=== PATIENT | male | born 1980 | race Caucasian/White ===

== ENCOUNTER 2018-03-30 21:49 | Inpatient (IN) ==
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
[2018-03-30 23:02] LABS: Baso % (Auto) 0.4 % (0.0-2.0); Eos # (Auto) 0.1 th/mm3 (0.0-0.4); Eos % (Auto) 0.9 % (0.0-4.0); Hematocrit 43.1 % (39.0-51.0); Hemoglobin 15.1 gm/dL (13.0-17.0); Lymph # (Auto) 2.1 th/mm3 (1.0-4.8); Lymph % (Auto) 25.9 % (9.0-44.0); Mean Corpuscular Hemoglobin 34.7 pg (27.0-34.0); Mean Corpuscular Volume 99.1 fL (80.0-100.0); Mono # (Auto) 0.5 th/mm3 (0.0-0.9); Mono % (Auto) 5.6 % (0.0-8.0); Neut # (Auto) 5.4 th/mm3 (1.8-7.7); Neut % (Auto) 67.2 % (16.0-70.0); Platelet Count 243 th/mm3 (150-450); Red Blood Count 4.35 mil/mm3 (4.50-5.90); Red Cell Distribution Width 13.5 % (11.6-17.2)
[2018-03-30 23:17] LABS: Alanine Aminotransferase 73 U/L (12-78); Albumin 4.1 g/dL (3.4-5.0); Anion Gap 8 meq/L (5-15); Aspartate Aminotransferase 72 U/L (15-37); Blood Urea Nitrogen 10 mg/dL (7-18); Calcium 8.6 mg/dL (8.5-10.1); Carbon Dioxide 29.1 meq/L (21.0-32.0); Chloride 109 meq/L (98-107); Glomerular Filtration Rate Greater Than 89 mL/min (>89); Glucose,Random 98 mg/dL (74-106); Magnesium 2.2 mg/dL (1.5-2.5); Potassium 3.8 meq/L (3.5-5.1); Sodium 146 meq/L (136-145)
[2018-03-30 23:27] LABS: Alcohol 377 mg/dL (0-5); Alkaline Phosphatase 107 U/L (45-117); Thyroid Stimulating Hormone 0.304 uIU/mL (0.358-3.740); Total Protein 8.9 g/dL (6.4-8.2)
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
[2018-03-31] MEDS ORDERED: Haloperidol Inj 5 MG/ML Ampul IM PRN (13:12)
[2018-03-31] MEDS ORDERED: LORazepam 1 MG Tablet PO PRN (13:12)
[2018-03-31 13:25] LABS: Amphetamine Screen,Urine Neg (Neg); Barbiturate Screen,Urine Neg (Neg); Cannabinoid Screen,Urine Pos (Neg); Cocaine Screen,Urine Neg (Neg)
[2018-03-31 13:30] LABS: Opiate Screen,Urine Neg (Neg)
[2018-03-31] MEDS ORDERED: Aluminum/Magnesium/Simethacone Susp 30 ML UDC PO PRN (14:21)
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
[2018-03-31] MEDS: LORazepam 1 MG Tablet PO PRN (19:30)
[2018-03-31] MEDS: Ibuprofen 600 MG Tablet PO PRN (19:30)
[2018-03-31] MEDS: Famotidine 20 MG Tablet PO SCH (22:00)
[2018-04-01] MEDS: Folic Acid 1 MG Tablet PO SCH (08:08)
[2018-04-01] MEDS: Multivitamin/Minerals Therapeutic Tablet PO SCH (08:08)
[2018-04-01] MEDS: Famotidine 20 MG Tablet PO SCH ×2 (08:08→20:32)
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
[2018-04-01] MEDS: LORazepam 1 MG Tablet PO PRN (16:22)
[2018-04-01 18:41] LABS: Baso % (Auto) 0.3 % (0.0-2.0); Eos % (Auto) 0.4 % (0.0-4.0); Hematocrit 39.7 % (39.0-51.0); Hemoglobin 14.2 gm/dL (13.0-17.0); Lymph # (Auto) 0.9 th/mm3 (1.0-4.8); Lymph % (Auto) 13.1 % (9.0-44.0); Mean Corpuscular HGB Conc 35.8 % (32.0-36.0); Mean Corpuscular Hemoglobin 35.1 pg (27.0-34.0); Mean Corpuscular Volume 98.1 fL (80.0-100.0); Mean Platelet Volume 7.7 fL (7.0-11.0); Mono # (Auto) 0.5 th/mm3 (0.0-0.9); Mono % (Auto) 7.2 % (0.0-8.0); Neut # (Auto) 5.3 th/mm3 (1.8-7.7); Platelet Count 185 th/mm3 (150-450); Red Blood Count 4.05 mil/mm3 (4.50-5.90); Red Cell Distribution Width 13.6 % (11.6-17.2); White Blood Count 6.7 th/mm3 (4.0-11.0)
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
[2018-04-01 19:09] LABS: Albumin 3.5 g/dL (3.4-5.0); Anion Gap 6 meq/L (5-15); Aspartate Aminotransferase 50 U/L (15-37); Blood Urea Nitrogen 14 mg/dL (7-18); Calcium 8.8 mg/dL (8.5-10.1); Carbon Dioxide 29.5 meq/L (21.0-32.0); Chloride 102 meq/L (98-107); Glomerular Filtration Rate 83 mL/min (>89); Glucose,Random 112 mg/dL (74-106); Magnesium 1.9 mg/dL (1.5-2.5); Potassium 3.9 meq/L (3.5-5.1); Sodium 137 meq/L (136-145)
[2018-04-01 19:10] LABS: Alanine Aminotransferase 56 U/L (12-78)
[2018-04-01 19:12] LABS: Alkaline Phosphatase 94 U/L (45-117)
[2018-04-01] MEDS: Morphine Sulfate Inj 2 MG/ML Vial IV.PUSH PRN (20:03)
[2018-04-02] MEDS: Morphine Sulfate Inj 2 MG/ML Vial IV.PUSH PRN ×2 (00:41→04:50)
[2018-04-02] MEDS: Multivitamin/Minerals Therapeutic Tablet PO SCH (08:08)
[2018-04-02] MEDS: Famotidine 20 MG Tablet PO SCH ×2 (08:08→20:21)
[2018-04-02] MEDS: Folic Acid 1 MG Tablet PO SCH (08:08)
[2018-04-02] MEDS: Ibuprofen 600 MG Tablet PO PRN ×2 (08:13→16:15)
--- NOTE | 2018-04-02 11:33 | P.DIET ---
Nutritional Evaluation Type of nutrition evaluation: initial Nutrition consult regarding: Diet Evaluation Nutrition screening: Weight Loss > 10 lbs Screening comments: 03/31/18 WLS Objective - Diagnosis depression - Objective Body Mass Index: 23.5 % IBW: 100 (IBW = 154lb) Body Weight Used for Calculations: Actual (70.2) Energy Needs - Lower Range (kCal/kg): 25 Energy Needs - Upper Range (kCal/kg): 30 Lower Limit kCal/kg (kCals): 1,755 Upper Limit kCal/kg (kCals): 2,106 Lower Limit Protein Factor (Grams per Kg): 1.1 Upper Limit Protein Factor (Grams per Kg): 1.3 Lower Protein Needs (Protein): 77 Upper Protein Needs (Protein): 91 Dietitian Reviewed in Medical Record: Current diet, Curent medications, Intake & Output, Labs, Medical history Diet Order: regular Oral Diet Intake Amount: Excellent 90%+ Objective Comments: PMH: h/o ETOH/marijuana abuse Meds: folic acid, haldol, MVI, vit B1 Labs: POC glucose 117, 123 Assessment Assessment: Pt currently at nutritional risk r/t reported unplanned wt loss. Pt currently on regular diet and consuming around 100% of most meals per chart. RD will continue to evaluate pts nutritional needs for additional PO supplements. Continue to monitor PO intake. Labs reviewed, dietitian following. Recommendations: 1. RD will continue to evaluate pts nutritional needs for additional PO supplements 2. Continue to monitor PO intake 3. Dietitian following Dietitian to Monitor: Lab values, Intake & Output, Diet tolerance, Weight change , PO Intake, Medical course
--- NOTE | 2018-04-02 12:17 | P.PNPSY ---
Subjective Remarks: Patient seen for follow-up, chart reviewed. Discussion with nursing staff reported that patient eating and drinking, was transferred to [facility] psych unit last evening after reporting chest pain which cardiac etiology was ruled out and continue to be followed by hospitalist. Patient was found lying in hospital bed noted to be calm and cooperative. Patient noted to be tearful and uncertain if whether he wanted to continue to go to rehabilitation upon discharge yet appears conflicted stating that he knows this is the right thing to do and agreed to continue to be referred upon discharge. Patient was noted to be tearful at times during interview and regards to his reflection of his current alcohol abuse and wanting to stay sober. Patient was encouraged to continue care until medically and psychiatrically cleared and referred to rehabilitation program which she agreed. Patient reported some anxiety regarding this plan. Denies any SI, HI, AVH or delusions. Review of Systems All other systems reviewed negative except as stated in HPI Mental Status Examination Appearance: Disheveled Consciousness: Alert Orientation: Person, Place, Date/Time Motor Activity: Normal gait Speech: Unremarkable Language: Adequate Fund of Knowledge: Inadequate Attention and Concentration: Adequate Memory: Impaired (Regarding events prior to his admission) Mood: Anxious Affect: Anxious, Other (tearful at times) Thought Process & Associations: Intact Thought Content: Appropriate Hallucination Type: None Delusion Type: None Suicidal Ideation: No Suicidal Plan: No Suicidal Intention: No Homicidal Ideation: No Homicidal Plan: No Homicidal Intention: No Insight: Fair Judgment: Impulsive Assessment and Plan - Assessment (1) Alcohol-induced mood disorder Code(s): F10.94 - Alcohol use, unspecified with alcohol-induced mood disorder Status: Acute (2) Alcohol abuse Code(s): F10.10 - Alcohol abuse, uncomplicated Status: Acute - Plan Plan: Patient noted to be tearful today regarding goal for sobriety, noted to be anxious and patient continues to be on [facility] protocol for withdrawal. We will add hydroxyzine 50 mg p.o. every 6 hours as needed for anxiety. Continue rest of medications. Hospitalist input appreciated. Continue to monitor for withdrawal. Withdrawal precautions. Discharge planning in progress. Justification for Continued Inpatient Stay: At risk of further decompensation at lower level care.
--- NOTE | 2018-04-02 17:56 | ECG ---
Date Performed: 04/01/2018 Time Performed: 18:17:07 PTAGE: 37 years EKG: Sinus rhythm WITH SHORT OR INTERVAL Compared to previous tracing, sinus rate is slower BORDERLINE ECG PREVIOUS TRACING : 12/09/2017 19.30 DOCTOR: Edison Ferguson Interpretating Date/Time 04/02/2018 17:54:42
--- NOTE | 2018-04-02 17:56 | ECG ---
Date Performed: 04/01/2018 Time Performed: 21:44:07 PTAGE: 37 years EKG: Sinus rhythm MINIMAL VOLTAGE CRITERIA FOR LVH, CONSIDER NORMAL VARIANT Since the previous tracing, no significant change noted BORDERLINE ECG PREVIOUS TRACING : 04/01/2018 18.17 DOCTOR: Edison Ferguson Interpretating Date/Time 04/02/2018 17:54:52
[2018-04-02] MEDS: LORazepam 1 MG Tablet PO PRN (20:21)
[2018-04-02] MEDS ORDERED: Morphine Inj 4 MG/ML Vial IV.PUSH PRN (21:00)
[2018-04-03] MEDS: Folic Acid 1 MG Tablet PO SCH (08:42)
[2018-04-03] MEDS: Famotidine 20 MG Tablet PO SCH ×2 (08:42→21:30)
[2018-04-03] MEDS: Multivitamin/Minerals Therapeutic Tablet PO SCH (08:43)
--- NOTE | 2018-04-03 10:38 | P.PNPSY ---
Subjective Remarks: Patient seen in his room with nurse Rosa Maria, patient lying in bed. Patient complaining of some persistent nausea with occasional emesis. It appears she may be having some question about going to the rehab on Thursday. There also may be some mild subtle drug-seeking. Patient did receive Ativan per the [facility] protocol. His blood pressures have been running fairly high so it appears he really is not some significant withdrawal at the present time. We will order Zofran 4 mg every 6 as needed nausea to assist him. He does denies suicidality or voices at this time Review of Systems All other systems reviewed negative except as stated in HPI Mental Status Examination Appearance: Disheveled Consciousness: Alert Orientation: Person, Place, Date/Time Motor Activity: Normal gait Speech: Unremarkable Language: Adequate Fund of Knowledge: Inadequate Attention and Concentration: Adequate Memory: Impaired (Regarding events prior to his admission) Mood: Anxious, Other (Somewhat manipulative) Affect: Other (Decreased range and intensity) Thought Process & Associations: Intact Thought Content: Appropriate Hallucination Type: None Delusion Type: None Suicidal Ideation: No Suicidal Plan: No Suicidal Intention: No Homicidal Ideation: No Homicidal Plan: No Homicidal Intention: No Insight: Fair Judgment: Impulsive Assessment and Plan - Assessment (1) Alcohol-induced mood disorder Code(s): F10.94 - Alcohol use, unspecified with alcohol-induced mood disorder Status: Acute (2) Alcohol abuse Code(s): F10.10 - Alcohol abuse, uncomplicated Status: Acute - Plan Plan: Patient still meeting criteria under [facility] protocol. There is some subtle drug-seeking. There is some persistent nausea with elevated blood pressure issues. We will add Zofran on a as needed basis. Continue treatment continue to consider discharge Thursday to rehab facility Justification for Continued Inpatient Stay: At this time patient with decompensated placed on a lower level of care Discharge Planning: To be determined possible discharge Thursday to rehab facility
[2018-04-04 05:58] VITALS: RESP 18; O2SAT 98
[2018-04-04] MEDS: Multivitamin/Minerals Therapeutic Tablet PO SCH (08:39)
[2018-04-04] MEDS: Famotidine 20 MG Tablet PO SCH ×2 (08:39→21:27)
[2018-04-04] MEDS: Folic Acid 1 MG Tablet PO SCH (08:39)
--- NOTE | 2018-04-04 13:39 | P.PNPSY ---
Subjective Remarks: Patient was seen and case discussed with nursing. Patient is due to be discharged tomorrow to a rehab program. However, he is manifesting with new somatic complaints of abdominal pain and vomiting. He says he vomited 5 times which nursing denies and said it only happened once. There is a possibility of malingering and an attempt to sabotage his discharge. He denies suicidal or homicidal ideation intent or plan. Mood is "good." He is also asking for Dilaudid Review of Systems All other systems reviewed negative except as stated in HPI Mental Status Examination Appearance: Disheveled Consciousness: Alert Orientation: Person, Place, Date/Time Motor Activity: Normal gait Speech: Unremarkable Language: Adequate Fund of Knowledge: Inadequate Attention and Concentration: Adequate Memory: Impaired (Regarding events prior to his admission) Mood: Anxious, Other (Somewhat manipulative) Affect: Other (Decreased range and intensity) Thought Process & Associations: Intact Thought Content: Appropriate Hallucination Type: None Delusion Type: None Suicidal Ideation: No Suicidal Plan: No Suicidal Intention: No Homicidal Ideation: No Homicidal Plan: No Homicidal Intention: No Insight: Fair Judgment: Impulsive Assessment and Plan - Assessment (1) Alcohol-induced mood disorder Code(s): F10.94 - Alcohol use, unspecified with alcohol-induced mood disorder Status: Acute (2) Alcohol abuse Code(s): F10.10 - Alcohol abuse, uncomplicated Status: Acute - Plan Plan: Continue current treatment plan Justification for Continued Inpatient Stay: Patient would decompensate in a less restrictive setting
[2018-04-04] MEDS: Ibuprofen 600 MG Tablet PO PRN ×2 (14:50→21:27)
[2018-04-05 05:22] VITALS: BP 131/79; PULSE 86; TEMP 98
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
== END 2018-04-05 07:30 | DRG 897 ==
LOC: NEPJ 21:49 → NEDA 03-31 14:33 → H260 03-31 16:25 → H4EA 04-01 18:48
PROVIDERS: ADMIT Student in an Organized Health Care Education/Training Program; ATTEND Student in an Organized Health Care Education/Training Program
DX: Z76.5 Malingerer [conscious simulation]; F17.210 Nicotine dependence, cigarettes, uncomplicated; I10 Essential (primary) hypertension; F10.220 Alcohol dependence with intoxication, uncomplicated; R10.9 Unspecified abdominal pain; R07.89 Other chest pain; F41.9 Anxiety disorder, unspecified; Y90.8 Blood alcohol level of 240 mg/100 ml or more; F10.239 Alcohol dependence with withdrawal, unspecified; F10.24 Alcohol dependence with alcohol-induced mood disorder; Z91.410 Personal history of adult physical and sexual abuse
CPT/HCPCS: 70450; 70486; 80053; 80307; 82948; 82962; 83735; 84443; 84484; 85025; 90772; 90782; 90792; 93005; 96372; 99285; J2060; J2270; J2405; Q0163